=== PATIENT | male | born 1945 | race Caucasian/White ===

== ENCOUNTER 2024-03-10 13:00 | Outpatient (RCR) | payer MEDICARE, SELFPAY | END 2024-04-14 10:49 | disposition home or self-care (01) | PROVIDERS: PCP Family Medicine; Visit Provider Family Medicine | DX: M54.2 Cervicalgia (principal); Z51.89 Encounter for other specified aftercare | CPT/HCPCS: 97110; 97140; 97161 ==

== ENCOUNTER 2024-10-27 04:48 | Emergency (ER) | payer MEDICARE, SELFPAY ==
[2024-10-27] VITALS (17 sets, daily range): BP systolic 142–174; BP diastolic 81–101; PULSE 70–89; RESP 16; TEMP 36.1; O2SAT 95–98; BMI 21.5
--- OUTSIDE RECORDS SUMMARY | 2024-10-27 04:51 | XMS_ITS | Data Portability ---
Author Organization [facility], [facility] Address [address] [place] [address] [address] [place] [address] Care Team Providers Care Course Developer Name Role Phone [facility] Primary Care Provider Assessment No assessment recorded. Plan of Treatment Reminders Order Date Submit Date Provider Last Modified By Organization Details Last Modified Time Details Appointments None recorded. Lab None recorded. Referral None recorded. Procedures None recorded. Surgeries None recorded. Imaging None recorded. Medication Orders finasteride 5 mg tablet 2023 [id number], [id number], [place], [address], 17:57:17 tadalafil 5 mg tablet 2023 [id number], [id number], [place], [address], 17:57:15 sildenafil 100 mg tablet 2023 [id number], [id number], [place], [address], 17:57:16 Patient TargetsNo targets recorded. Patient InstructionsNo instructions recorded. Reason for Referral None Reported. Procedures Surgical History Date Name Laterality Status Provider Name and Address Organization Details Recorded Time Bladder Scan completed Dalila Calvo [facility] 04/29/2024 15:15:35 colonoscopy completed Dalila Calvo [facility] 04/29/2024 15:14:32 Imaging Results None recorded. Procedure Notes None recorded. Medical Equipment None Reported. Allergies Allergen ID Allergen Name Allergen Category Reaction Reaction Severity Criticality Documentation Date Start Date Code Code System Note Provider Name and Address Organization Details Recorded Time [id number] Vaccine product containin g only Clostridi um tetani antigen (medicina l product) medicatio n Not available Not available Not available 04/29/2024 56329 [id number] SNOMED Not Available Not Available Not Available Medications Name Sig Start Date Stop Date Status Note LastModified by Organization Details LastModified Time albuterol sulfate 2.5 mg/3 mL (0.083 %) solution for nebulizatio n INHALE 3 ML (2.5 MG) VIA A NEBULIZER EVERY 6 HOURS IF NEEDED FOR WHEEZING OR SHORTNESS OF BREATH. active Not Available Not Available No t Available lisinopril 20 mg-hydrochl orothiazide 12.5 mg tablet Take 1 tablet every day by oral route. active Not Available Not Available No t Available sildenafil 100 mg tablet Take 1 tablet every day by oral route. 2023 active Not Available Not Available Not Avai lable brimonidine 0.2 % eye drops INSTILL 1 DROP INTO AFFECTED EYE(S) BY OPHTHALMI C ROUTE EVERY 8 HOURS active Not Available Not Available No t Available montelukast 10 mg tablet Take 1 tablet every day by oral route. active Not Available Not Available No t Available finasteride 5 mg tablet Take 1 tablet every day by oral route. 2023 active Not Available Not Available Not Avai lable tadalafil 5 mg tablet Take 1 tablet every day by oral route. 2023 active Not Available Not Available Not Avai lable GaviLyte-G 236 gram-22.74 gram-6.74 gram-5.86 gram oral solution DRINK 2 LITERS THE DAY BEFORE COLONOSCO PY AND 2 LITERS 6 HOURS BEFORE COLONOSCO PY APPOINTME NT 04/29 completed Not Available Not Available Not Available dorzolamide 2 % (PF) eye drops active Not Available Not Available No t Available Paxlovid 300 mg (150 mg x 2)-100 mg tablets in a dose pack PLEASE SEE ATTACHED FOR DETAILED DIRECTION S 04/29 completed Not Available Not Available Not Available latanoprost (PF) 0.005 % eye drops in a dropperette INSTILL 1 DROP INTO AFFECTED EYE(S) BY OPHTHALMI C ROUTE ONCE DAILY INTHE EVENING active Not Available Not Available No t Available Vitals Date Recorded Body height Provider Name an d Address Organization Details Last Updated DateTime 04/29/2024 185.42 cm Dalila Calvo [facility] 04/29/2024 15:05:07 Date Recorded Body mass index (BMI) Body weight Provider Name and Address Organization Details Last Updated DateTime 04/29/2024 21.8 kg/m2 45603.74 g [facility] 04/29/2024 15:05:24 Social History Question Answer Notes LastModified by Organizat ion Details LastModified Time Tobacco Smoking Status Never Smoker [facility] [place] [facility] 04/29/2024 15:14:13 What Is Your Level Of Alcohol Consumption? Occasional Information not available 04/29/2024 What Is Your Level Of Caffeine Consumption? Occasional Information not available 04/29/2024 What Was The Date Of Your Most Recent Tobacco Screening? 04/29/2024 Information not available 04/29/2024 Sex: Unknown Functional Status None recorded. Mental Status None recorded. Family History Relationship Description Onset Age of this Age Resolved Age Notes LastModified by Organization Details LastModified Time Father No current problems or disability [email or web address] Not available 04/29 15:13:48 Mother No current problems or disability [email or web address] Not available 04/29 15:13:48 Medical History Condition Response Other N High Blood Pressure Y Kidney Stones Y Lung Disease N Depression N GERD/Acid Reflux N Diabetes N Sexually Transmitted Infection N Bleeding Disorder N Cancer N High Cholesterol N Heart Disease N Immunizations Vaccine Type Date Status Note Provider Nam e and Address Organization Details Recorded Time Influenza, high-dose, quadrivalent, PF [facility] 04/29/2024 15:05:31 Influenza, high-dose, quadrivalent, PF 2 completed Dalila Calvo [facility] 04/29/2024 15:05:31 Influenza, high-dose, quadrivalent, PF 0 [facility] [place] [facility] 04/29/2024 15:05:31 Influenza, adjuvanted, quadrivalent, PF 1 completed Dalila Calvo null, [facility] 04/29/2024 15:05:31 COVID-19, mRNA, LNP-S, PF, 30 mcg/0.3 mL dose 1 completed Dalila Calvo null, [facility] 04/29/2024 15:05:31 COVID-19, mRNA, LNP-S, PF, 30 mcg/0.3 mL dose 1 completed Dalila Calvo null, [facility] 04/29/2024 15:05:31 COVID-19, mRNA, LNP-S, PF, 30 mcg/0.3 mL dose 1 completed Dalila Calvo null, [facility] 04/29/2024 15:05:31 Pneumococcal conjugate PCV20, polysaccharide [id number] conjugate, adjuvant, PF 3 completed Dalila Calvo null, [facility] 04/29/2024 15:05:31 COVID-19, mRNA, LNP-S, bivalent, PF, 30 mcg/0.3 mL dose 2 completed Dalila Calvo null, [facility] 04/29/2024 15:05:31 COVID-19, mRNA, LNP-S, PF, felix-sucrose, 30 mcg/0.3 mL 4 completed Dalila Calvo null, [facility] 04/29/2024 15:05:31 pneumococcal polysaccharide PPV23 3 completed Dalila Calvo null, [facility] 04/29/2024 15:05:31 Novel [id number]-[id number], all formulations 0 completed Dalila Calvo null, [facility] 04/29/2024 15:05:31 Pneumococcal conjugate PCV 13 6 completed Dalila Calvo null, [facility] 04/29/2024 15:05:31 Influenza, high-dose, trivalent, PF 8 completed Dalila Calvo null, [facility] 04/29/2024 15:05:31 Influenza, high-dose, trivalent, PF 5 completed Shalisa [place] null, [facility] 04/29/2024 15:05:31 Influenza, high-dose, trivalent, PF 9 completed Shalisa [place] null, [facility] 04/29/2024 15:05:31 Influenza, high-dose, trivalent, PF 4 completed Shalisa [place] null, [facility] 04/29/2024 15:05:31 Influenza, split virus, trivalent, preservative 7 completed Shalisa [place] null, [facility] 04/29/2024 15:05:31 Influenza, split virus, trivalent, preservative 8 completed Shalisa [place] null, [facility] 04/29/2024 15:05:31 Influenza, split virus, trivalent, PF 0 completed Naresh null, [facility] 04/29/2024 15:05:31 Td (adult), 2 Lf tetanus toxoid, preservative free, adsorbed 0 completed Johnli [place] null, [facility] 04/29/2024 15:05:31 Hep B, adult 5 completed li null, [facility] 04/29/2024 15:05:31 Hep B, adult 5 completed Naresh null, [facility] 04/29/2024 15:05:31 Hep A, adult 5 completed Johnlisa [place] null, [facility] 04/29/2024 15:05:31 Influenza, split virus, quadrivalent, PF 4 completed Shalisa [place] null, [facility] 04/29/2024 15:05:31 Influenza, split virus, quadrivalent, PF 6 completed Shalisa [place] null, [facility] 04/29/2024 15:05:31 Past Encounters Encounter ID Performer Location Encounter Start Date Encounter Closed Date Diagnosis/Indication Diagnosis SNOMED-CT Code Diagnosis ICD10 Code Diagnosis Note [id number] MD ANNETTE Ruggiero_Nadira Campbell [facility]OWNING [id number] 0 04/29/2024 14:52:13 04/30/2024 10:32:25 Slowing of urinary stream 76666174 R39.12 - Obtain UroCuff - PVR 1 mL - AUA SS: 30 (QOL 4) - PSA: 2.73 ng/mL - We discussed the natural history of voiding dysfunctio n including primary bladder outlet obstructio n vs detrusor instabilit y vs combinatio n. We discussed the role of medication s in the management of BPH including alpha blockers, 5-ANI, and anticholin ergics/bet a agonists including their mechanisms of action. - We discussed various bladder outlet procedures including MISTs (UroLift, Rezum, Prostate Artery Embolizati on) and traditiona l invasive procedures (Aquablati on, Greenlight PVP, Bipolar TURP, HoLEP). We reviewed risks and benefits of each including anticipate d long-term outcomes. To further evaluate each of these options as a potential treatment option I will set him up for a cystoscopy and TRUS volume only to determine volume and status of medial lobe; as well as a pressure flow study to confirm obstructio n in accordance with AUA guidelines . -Start combinatio n therapy tadalafil + finasterid e Terminal d ribbling of urine 981087560 N39.43 - As above Finding of desire for urination 102341343 O26.899 - As above Increased frequency of urination 458388639 R35.0 - As above Must strai n to pass urine 927743185 R39.16 - As above Primary er ectile dysfunction 792049384 N52.9 - We discussed the natural history of erectile dysfunctio n. - Encouraged to continue to follow with his PCP regarding general health maintenanc e as early onset erectile dysfunctio n may herald future cardiovasc ular event. - We discussed various treatment options and their mechanisms of action including: oral PDE-5i, vacuum erection device, intracaver nosal injection therapy, MUSE, and penile prosthesis . The risks and benefits of each course of action were discussed in detail. AUA guidelines suggest that all treatment options should be considered equal and choice of therapy should be individual ized. Health Concerns Section Related Observation LastModified by Organization Christiano LastModified Time None Recorded Concern Status LastModified by Organization Details LastModified Time None Recorded Advance Directives Directive None Recorded Payers Encounter Date Sequence Insurance Name Policy Number Policy Tillman Covered Member ID Tillman Member ID Guarantor Name 04/29/2024 1 [employer] - DOS ON OR AFTER 19 (MEDICARE REPLACEMENT/ ADVANTAGE - PPO) Gabriele Mccall [id number] Gabriele Mccall Notes Date Note Type Note Provider Name and Address Organization Details Recorded Time 04/29/2024 text/html Mr. Mccall is a 78 yoM who previously saw me in [place] for ED and nocturia. Patient reports that both his ED and voiding have worsening. Current voiding consists of: weak urinary stream, straining to void, urinary frequency, urinary urgency,and sensation of incomplete emptying. Laz Zapata MD [address] [facility],[address], [place], [address], [facility] 04/29/2024 18:01:59
--- OUTSIDE RECORDS SUMMARY | 2024-10-27 04:51 | XMS_ITS | Continuity of Care Document ---
Author Organization [facility] Address [address] [address] [place] [address] Phone Care Team Providers Care Airplane Pilot Crop Dusting Name Role Phone Cam Madrid MD Unavailable Unavailabl e Allergies, Adverse Reactions, Alerts Substance Reaction Status Criticality TETANUS AND DIPHTHERIA TOXOIDS, ADSORBED, ADULT HivesH tc Active No Information Medications Medication Instructions Dosage Effective Dates (start - stop) Status Comments montelukast 10 mg tablet take 1 tablet by oral route every day in the evening 10 MG - Active dorzolamide 2 % eye drops instill 1 drop by ophthalmic route 2 times every day into affected eye(s) 1 drop - Active brimonidine 0.15 % eye drops instill 1 drop by ophthalmic route 2 times every day into affected eye(s) 1 drop - Active latanoprost 0.005 % eye drops instill 1 drop by ophthalmic route every day into affected eye(s) in the evening 1.00 drop - Active Procedures Procedure Date Adenoma(s), Other Neoplasm Detected Duri ng Screen Colonoscopy Flex; W/bx 1/mx Level Iv-surg Path Gross/micro 18 Advance Directives Directive Yes / No Effective Date File Name No Information Encounters Encounter Description Practice Location Reason(s) For Visit Diagnoses Date Provider Providers Copied on Encounter [facility], [address] [address], [place], [id number], [place] tel:[phone] [facility] No Information Kofi Levy. [address] [facility], [facility] [address], [place], [place], [id number] , . tel:[phone] [facility], [address] [address], [place], [place], [id number], tel:[phone] [facility] Colorectal polyp detected on colonoscopyDivertic ulosis of colon without diverticulitisInter nal and external hemorrhoids without complicationEncount er for screening for malignant neoplasm of colonPersonal history of colonic polypsBenign neoplasm of ascending colonDvrtclos of lg int w/o perforation or abscess w/o bleedingBenign neoplasm of ascending colonPersonal history of colonic polyps 8 Jules Chao. [address] [facility], [facility] [address], [place], [place], [id number] , [place]. tel:[phone] Referring Provider: Kevin Denson MD S, [address], [place], [address]. tel:[phone] Family History Family Member Type Diagnosis Age At Onset Daughter Problem (finding) Alive and well Son Problem (finding) Alive and well Father Problem (finding) Brother Problem (finding) Alive and well Sister Problem (finding) Alive and well Mother Problem (finding) Payers Payer name Insurance type Covered democrat ID Authoriza tion(s) No Information Social History Type Description Quantity Date Captured Comments Sex Male Smoking Status No Information Chief Complaint And Reason For Visit No Information Reason For Referral Reason For Referral No Information History Of Present Illness Encounter Date Complaint History Of Prese nt Illness No Information Functional Status Date Functional Assessmen t No Information Instructions Date Instruction Additional Infor mation Colon Cancer Prevention Related to Colorectal polyp detected on colonoscopy Colon Polyps Related to Color ectal polyp detected on colonoscopy Diverticulosis/Diverticulitis Re lated to Diverticulosis of colon without diverticulitis High Fiber Diet Related to Diver ticulosis of colon without diverticulitis Assessments Type Assessment Date No Information Patient Care Teams Name Effective Dates (start - stop) Status Members No Information
--- OUTSIDE RECORDS SUMMARY | 2024-10-27 04:51 | XMS_ITS | Clinical Summary ---
Author Organization [email or web address] [facility] Address [place], [place] [address] Care Team Providers Care Cashier Supervisor Name Role Phone Scottie Meadows MD Primary Care Provider Allergies Active Allergy Reactions Criticality Noted Date Comments Tetanus Vaccines And Toxoid Rash 12/26/19 17 Medications aspirin (ADULT LOW DOSE ASPIRIN) 81 mg enteric coated tabletIndications :HLD (hyperlipidemia) Take by mouth. 7 Active brinzolamide-brim onidine 1-0.2 % drpsIndications:G laucoma Place into the eye(s). Active dorzolamide (TRUSOPT) 2 % ophthalmic solution Place 1 Drop into both eyes 2 times daily. 8 Active latanoprost (XALATAN) 0.005 % ophthalmic solution Place 1 Drop into both eyes once daily. 8 Active sildenafil citrate (VIAGRA) 100 mg tabletIndications :Erectile dysfunction, unspecified erectile dysfunction type Take 1 Tablet (100 mg) by mouth once daily if needed for Erectile Dysfunction. Take 30min to 4 hours before sexual activity. Max 100mg/24hr. 30 Tablet 11 1 Active albuterol HFA (Ventolin HFA) 90 mcg/actuation inhalerIndication s:Mild intermittent asthma without complication Inhale 1-2 Puffs by mouth every 4 hours if needed for Shortness of Breath 1st choice. 1 Each 1 4 Active montelukast (SINGULAIR) 10 mg tabletIndications :Chronic rhinitis,Mild persistent asthma without complication Take 1 Tablet (10 mg) by mouth at bedtime. 90 Tablet 3 4 Active albuterol 0.083% (2.5 mg/3 mL) neb solutionIndicatio ns:Mild persistent asthma without complication Inhale 3 mL (2.5 mg) via a nebulizer every 6 hours if needed for Wheezing or Shortness Of Breath. 75 mL 3 4 Active predniSONE (DELTASONE) 20 mg tabletIndications :Moderate asthma with exacerbation, unspecified whether persistent Two tabs oral daily for 5 days. 10 Tablet 4 Active fluticasone propion-salmetero L (ADVAIR) 250-50 mcg/Dose diskus inhalerIndication s:Mild persistent asthma without complication Inhale 1 Puff by mouth two times daily. 10.2 Each 4 4 Active lisinopriL (PRINIVIL; ZESTRIL) 10 mg tabletIndications :Need for COVID-19 vaccine Take 1 Tablet (10 mg) by mouth once daily. 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 Office Visit [facility] [address] [place] [address] Scottie Meadows MD Follow Up (Cough and wheezing ) 08/09/2024 Travel from Last 3 Months Immunizations Name Administration Dates Next Due AMB Influenza, IIV4 PF (=>6 mos Flulaval,Fluzone Fluarix)(Flu Clinic Only) 10/02/2016 COVID-19 VACCINE SPIKEVAX (M ODERNA 50MCG/0.5ML) 12YO+ PFS 06/24/2024 Hepatitis A (Adult) 06/30/2015 Hepatitis B (Adult) 08/01/2015,06/30/2015 Influenza A (H1N1), Inactivated 11/21/2009 Influenza, High-dose Inactivated 019,07/27/2018,08/01/2015,2013 Influenza, High-dose Quadriv alent Inactivated 10/09/2023,08/05/2022,08/30/2020 Influenza, IIV3 (Age 6-35 mos) 11/21/2009 Influenza, IIV3 (Age >=3 years) 09/19/2008,08/11 Influenza, IIV4 10/14/2013 Influenza, Inactivated AIIV4 (Age 65+ Years) Preserv Free 08/24/2021 Influenza, Inactivated IIV3 (Age 65+ Years) Preserv Free 08/09/2024 Pneumococcal Conj 20-valent (Prevnar 20) 11/07/2022 Pneumococcal Poly,23-Valent (Pneumovax) 03/04/2013 Pneumococcal conj 13-Valent (Prevnar 13) 12/13/2015 Td (Age >=7 Years) 05/01/1990 Tdap 05/01/1990 Family History Medical History Relation Name Comments Hypertension Brother 2 Hypertension Father Other Father CAD Parkinsonism Father Arthritis Mother Hypertension Mother Hypertension Sister 2 Anesthesia Problem No Family History Relation Name Status Comments Brother 1 Alive Brother 2 Father Mother Alive Sister 1 Alive Sister 2 Social History Tobacco Use Types Packs/Day Years Used Date Smoking Tobacco: Never Smokeless Tobacco: Never Tobacco Cessation:Counseling Given: No Alcohol Use Standard Drinks/Week Comments Yes 0 (1 standard drink = 0.6 oz pur e alcohol) rare PHQ-2 Answer Date Recorded PHQ-2 TOTAL SCORE 0 11/18/2023 Social Connections Answer Date Recorded Do you often feel lonely or isolated from those around you? 0 11/17/2023 Financial Resource Strain Answer Date R ecorded Difficulty of Paying Living Expenses 3 11/17/2023 Difficulty of Paying Living Expenses Not on file 11/17/2023 Food Insecurity Answer Date Recorded Do you worry your food will run out before you are able to buy more? 1 11/17/2023 Transportation Needs Answer Date Record ed Does lack of transportation keep you from medica l appointments? 1 11/17/2023 Does lack of transportation keep you from work, meetings or getting things that you need? 1 11/17/2023 Housing Stability Answer Date Recorded What is your housing situation today? 1 11/17/2023 Utilities Answer Date Recorded Do you have trouble paying f or utilities (for example, heat, electricity, water, phone)? 1 11/17/2023 Sex and Gender Information Value Date Recorded Sex Assigned at Not on file Legal Sex Male 3:31 PM CDT Gender Identity Not on file Sexual Orientation Not on file Obstetrics History Last Filed Vital Signs Vital Sign Reading Time Taken Comments Blood Pressure 108/69 08/09/2024 1:58 PM R[employer] MACHINE TENDER Pulse 88 08/09/2024 1:58 PM [employer] M[employer] TENDER Temperature 36.4 C (97.5 F) 07/21/2024 11:21 AM CDT Respiratory Rate 14 12/30/2023 12:0 0 PM CDT Oxygen Saturation 96% 08/09/2024 1:58 PM RIB[employer] LAP MACHINE TENDER Inhaled Oxygen Concentration - - Weight 76.1 kg (167 lb 12.8 oz) 08/09/2024 1:58 PM [employer] LAP MACH[employer] TENDER Height 185.4 cm (6' 1) 07/26/2024 3:20 PM CDT Body Mass Index 22.14 07/26/2024 3:20 PM CDT Plan of Treatment Health Maintenance Due Date Last Done Comments Zoster (shingles) series for age 50+ (1 of 2) 1997 RSV vaccine for adults or (1 - 1-dose 75+ series) 2022 Depression screening for age 12+ 11/18/2024 11/18/2023, 11/18/2023, 11/07/2022, Additional history exists Medicare Wellness for age 65+ 11/18/2024, 11/07/2022, 08/24/2021, Additional history exists BMI (ht and wt on same day) for age 18+ 07/26/2025 07/26/2024, 06/24/2024, 11/18/2023, Additional history exists Hepatitis C screening for ag e 18-79 Completed 12/13/2015 Pneumococcal series for age 50+ Completed 11/07/2022, 12/13/2015, 03/04/2013 COVID-19 vaccine series Completed 06/24/20 24, 10/09/2023, 07/12/2022, Additional history exists Influenza for age 65+ Completed 08/09/2024 , 10/09/2023, 08/05/2022, Additional history exists Procedures Procedure Name Priority Date/Time Associated Diagnosis Comments ANTI HCV Routine 12/13/2015 10:16 AM R[employer] LAP MACH[employer] TENDER Medicare annual wellness visit, subsequent from Last 3 Months or Most Recently Relevant to Health Maintenance Results * ANTI HCV [[id number]] (12/13/2015 10:16 AM RIB[employer]ON LAP MACHINE TENDER) HEPATITIS C ANTIBODY Non-Reacti ve Non-Reacti ve 12/13/2015 4:11 PM RIBBON LAP MACHINE TENDER [facility] Blood specimen (specimen) BLOOD SPECIMEN / Unknown Venipuncture / Unknown 12/13/2015 10:16 AM [employer] LAP MACH[employer] TENDER 12/13/2015 10:16 AM [employer] LAP MACHINE TENDER Narrative [facility] - 12/13/2015 4:11 PM [employer] MACH[employer] TENDER Antibodies to HCV not detected; does not exclude the possibility of exposure to HCV. us Kevin Denson MD SEND OUTS Final Res ult [facility] [address] [place] [address], [place] from Last 3 Months or Most Recently Relevant to Health Maintenance Insurance [employer] MED[employer]ARE [employer]VANTAGE [facility] Care Teams Cashier Supervisor Relationship Specialty Start Date End Date Scottie Meadows MD [address] [place] [address] PCP - General Family Practice 09/15/19
--- NOTE | 2024-10-27 05:42 | CRLHL7_ITS ---
For Patients: As a result of the Century Cures Act, medical imaging exams and procedure reports are released immediately into your electronic medical record. You may view this report before your referring provider. If you have questions, please contact your health care provider. INDICATION: Vertigo, dizziness, hypertension. COMPARISON: None. TECHNIQUE: CT of the brain / head without intravenous contrast. Multiplanar axial, coronal, and sagittal reformats were reconstructed. FINDINGS: No intracranial hemorrhage. Normal appearance of the white matter. No acute or subacute cortically based infarct. No mass or mass effect. Normal ventricles. No skull fractures. No worrisome focal bone lesion. Mild paranasal sinus mucosal thickening. No air-fluid levels. IMPRESSION: 1. Normal intracranial contents. 2. Mild paranasal sinus mucosal thickening. Please note that all CT scans at this facility use dose modulation, iterative reconstruction, and/or weight-based dosing when appropriate to reduce radiation dose to as low as reasonably achievable. Dictated by Libby Antonio MD @ 10/27/2024 6:31:25 AM (Electronically Signed)
--- OUTSIDE RECORDS SUMMARY | 2024-10-27 05:56 | XMS_ITS | Continuity of Care Document ---
Author Organization [facility] Address [address] [address] [place] [address] Phone Care Team Providers Care Hr Business Partner Name Role Phone Cam Madrid MD Unavailable [...] Diagnoses Date Provider Providers Copied on Encounter [facility], [address] [address], [place], [id number], [place] tel:[phone] [facility] No Information Kofi Levy. [address] [facility], [facility] [address], [place], [place], [id number] , . tel:[phone] [facility], [address] [address], [place], [place], [id number], tel:[phone] [facility] Colorectal polyp detected on colonoscopyDivertic ulosis of colon without diverticulitisInter nal and external hemorrhoids without complicationEncount er for screening for malignant neoplasm of colonPersonal history of colonic polypsBenign neoplasm of ascending colonDvrtclos of lg int w/o perforation or abscess w/o bleedingBenign neoplasm of ascending colonPersonal history of colonic polyps 8 Jules Chao. [address] [facility], [facility] [address], [place], [place], [id number] , [place]. tel:[phone] Referring Provider: Kevin Denson MD S, [address], [place], [address]. tel:[phone] Family History Family Member Type Diagnosis Age At Onset Daughter Problem (finding) Alive and well Son Problem (finding) Alive and well Father Problem (finding) Brother Problem (finding) Alive and well Sister Problem (finding) Alive and well Mother Problem (finding) Payers Payer name Insurance type Covered alliance party ID Authoriza tion(s) No Information Social History [...]
--- OUTSIDE RECORDS SUMMARY | 2024-10-27 05:56 | XMS_ITS | Clinical Summary ---
Author Organization [facility] [facility] Address [place], [place] [address] Care Team Providers Care Behavioral Sciences Department Chair Name Role Phone Scottie Meadows MD Primary [...] Department Care Team Description 08/09/2024 2:05 PM CELLAR PACKER Office Visit [facility] [address] [place] [address] Scottie Meadows MD Follow Up (Cough and [...] Comments Blood Pressure 108/69 08/09/2024 1:58 PM CELLAR PACKER Pulse 88 08/09/2024 1:58 PM CELLAR PACKER Temperature 36.4 C (97.5 F) 07/21/2024 11:21 AM CDT Respiratory Rate 14 12/30/2023 12:0 0 PM CDT Oxygen Saturation 96% 08/09/2024 1:58 PM CELLAR PACKER Inhaled Oxygen Concentration - - Weight 76.1 kg (167 lb 12.8 oz) 08/09/2024 1:58 PM CELLAR PACKER Height 185.4 cm (6' 1) 07/26/2024 3:20 [...] Comments ANTI HCV Routine 12/13/2015 10:16 AM CELLAR PACKER Medicare annual wellness visit, subsequent from Last 3 Months or Most Recently Relevant to Health Maintenance Results * ANTI HCV [[id number]] (12/13/2015 10:16 AM CELLAR PACKER) HEPATITIS C ANTIBODY Non-Reacti ve Non-Reacti ve 12/13/2015 4:11 PM CELLAR PACKER [facility] Blood specimen (specimen) BLOOD SPECIMEN / Unknown Venipuncture / Unknown 12/13/2015 10:16 AM CELLAR PACKER 12/13/2015 10:16 AM CELLAR PACKER Narrative [facility] - 12/13/2015 4:11 PM CELLAR PACKER Antibodies to HCV not detected; does not exclude the possibility of exposure to HCV. us Kevin Denson MD SEND OUTS Final Res ult [facility] [address] [place] [address], [place] from Last 3 Months or Most Recently Relevant to Health Maintenance Insurance [employer] MED[employer]ARE ADV[employer]AGE [employer] [facility] Care Teams Behavioral Sciences Department Chair Relationship Specialty Start Date End Date Scottie Meadows MD [address] [place] [address] PCP - General Family Practice 09/15/19
[2024-10-27 06:07] LABS: Basophils Absolute Auto 0.04 K/uL (0.00-0.30); Basophils Percent Auto 0.8 % (0.0-3.0); Eosinophils Absolute Auto 0.32 K/uL (0.00-0.50); Eosinophils Percent Auto 6.3 % (0.0-7.0); Hematocrit 41.1 % (37.0-53.0); Hemoglobin* 13.4 gm/dL (13.5-17.5); Immature Granulocytes Abs Auto 0.06 K/uL (0.00-0.30); Immature Granulocytes Pct Auto 1.2 %; Lymphocytes Percent Auto 17.5 % (20-44); Mean Corpuscular HGB Conc 33 gm/dL (32-36); Mean Corpuscular Hemoglobin 28 pg (26-34); Mean Corpuscular Volume 87 fL (80-100); Monocytes Percent Auto 7.3 % (0.0-11.0); Neutrophils Absolute Auto 3.42 K/uL (1.7-7.0); Neutrophils Percent Auto 66.9 % (42.0-72.0); Platelet Count* 258 K/uL (140-440); RDW Coefficient of Variation % 12.8 % (11.5-15.5); Red Blood Count 4.75 m/uL (4.30-5.90)
--- NOTE | 2024-10-27 06:09 | ED.GENADULT ---
HPI - General Adult General Chief complaint: Hypertension Stated complaint: Dizziness, BP 168/89 Time Seen by Provider: 10/27/24 05:29 Source: patient and family Mode of arrival: ambulatory Limitations: no limitations History of Present Illness HPI narrative: 79-year-old male presents to the emergency department for evaluation of dizziness which she describes as a room spinning sensation that lasts for about 1-2 minutes after he gets up to go to the bathroom overnight. Happens only when lying down, not with movement of his head. No symptoms currently. No trauma or injury. Not anticoagulated. Does have a history of hypertension. He has noticed that his blood pressure has been running higher than usual specifically in the 150 systolic over the last month or so. He does regularly monitor is blood pressure 2 to 3 times per week. Has not followed up with his primary care doctor regarding this. No feeling of abnormal heart rate or rhythm, no chest pain, no severe shortness of breath. He denies fevers or recent symptoms of illness. No dysuria, bloody stools, symptoms of bleeding, other stroke-like symptoms. No vision changes, no balance issues. He cannot reproduce symptoms here for me. Denies prior episodes of similar illness. He does take lisinopril for his hypertension and admits that sometimes he has a slight postural lightheadedness with position changes but that is not new nor what he is describing today. Past medical history is notable for hypertension and glaucoma only. No prior surgeries besides glaucoma surgery. His only home medications are his eyedrops and lisinopril 10 mg once daily with no recent dose adjustments. He also takes a at 81 mg aspirin daily. Nonsmoker. No pertinent travel. ROS is notable for the generalized symptoms as above only, otherwise denies times 12 systems. Related Data Allergies Allergy/AdvReac Type Severity Reaction Status Date / Time tetanus immune globulin Allergy Intermediate Rash Verified 10/27/24 04:55 [facility] Social History Non-prescribed substance use: denies use Exam Const: Vital Signs, click to edit/add: Vital Signs - 24 hr 10/27/24 04:49 10/27/24 05:10 10/27/24 05:30 Temperature 97.0 F L Pulse Rate 84 73 Pulse Rate [Left P ulse Oximeter] 85 Respiratory Rate 16 Blood Pressure Blood Pressure [Ri ght Upper Arm] 174/81 H Pulse Oximetry 98 97 96 Oxygen Delivery Me thod Room Air 10/27/24 05:32 Temperature Pulse Rate 89 Pulse Rate [Left P ulse Oximeter] Respiratory Rate Blood Pressure 159/101 H Blood Pressure [Ri ght Upper Arm] Pulse Oximetry 98 Oxygen Delivery Me thod Documenting provider has reviewed patient's vital signs: yes Common normals: no apparent distress and alert General appearance: comfortable and well kempt Other: Mildly anxious, talkative. Friendly and cooperative HENMT: Common normals: normocephalic, moist oral mucous membranes and oropharynx normal Head and scalp: normocephalic Face and sinus: normal facial exam Mouth: oral and palatal mucosa normal Eye: Common normals: PERRL, EOMs intact bilaterally and conjunctivae normal General eye: normal appearance of both eyes Conjunctiva: conjunctiva(e) normal Pupil: PERRL Other: No nystagmus on exam Neck & C-Spine: Common normals: full ROM and no lymphadenopathy General: normal visual inspection Resp: Common normals: normal respiratory effort, no use of accessory muscles and clear to auscultation bilaterally Effort & inspection: able to speak in complete sentences Auscultation: clear to auscultation bilaterally Cardio: Common normals: regular rate, regular rhythm, S1 normal heart sound, S2 normal heart sound and no murmurs Rate: regular rate Rhythm: regular rhythm Heart sounds: S1 normal and S2 normal GI: Common normals: Normal to inspection, nondistended, normoactive bowel sounds present, soft to palpation, non-tender, no hepatosplenomegaly and no masses Palpation: soft and no hepatosplenomegaly Back & Pelvis: Common normals: thoracic and lumbar spine normal to inspection Extremity: Common normals: normal to inspection, full ROM and normal capillary refill Neuro: Common normals: CN's II-XII intact bilaterally, moves all extremities and no focal motor deficits Sensorium/orientation: alert Speech: speech normal Gait (neuro): normal gait Motor exam: strength 5/5 throughout, no tremor noted and no movement abnormalities noted Psych: Appearance: well kempt Attitude: engaged Activity/motor behavior: appropriate eye contact Attention/concentration: attention grossly intact Insight: fair Judgement: fair Skin: Common normals: no rashes or lesions noted General skin exam: no rashes or lesions noted Course Course ED Course: 79-year-old male with brief episodes of vertiginous dizziness with lying down at night that spontaneously resolve within a couple of minutes. Differential diagnosis including symptomatic hypertension, TIA, benign positional vertigo, labyrinthitis, side effects from his lisinopril, acute illness like bladder infection, influenza, symptomatic anemia, amongst others. I do ask for clarification several times in the interview if this is a lightheadedness verses a vertigo type pattern and he does contradict himself a few times. Because of this, I think it is worth doing a full workup. Head CT, troponins, CBC, metabolic panel, court monitor recommended. Blood pressures are mildly elevated but not levels that have me concerned for acute treatment. EKG ordered. Await findings. Reevaluation(s) Time of Reevaluation #1: 08:13 Reevaluation #1: Patient informed of his lab results, repeat troponins are also negative. Patient has been up ambulating to the bathroom twice while he has been here and is clearly very steady on his feet. He remains asymptomatic with no neuro changes. Counseled that the CT does show some sinus thickening. This could potentially explain his mild vertigo or it could be related to other factors. Nonetheless it does not seem to be urgent at this time. Blood pressures have remained stable and do not require treatment at this time. I would like for patient to start some Flonase twice daily for a few days and then once daily for a total of 2 weeks. Primary care follow-up in 2 weeks time to recheck blood pressures and re-evaluate symptoms. Consider MRI if symptoms are not improving. He will stay on his lisinopril and low-dose aspirin as prescribed. Following up in the ED with any alarm symptoms. Written instructions provided. Vital Signs Vital signs: Initial Vital Signs Temperature 97.0 F L 10/27/24 04:49 Temperature Source Temporal Artery Scan 10/27/24 04:49 Pulse Rate 85 10/27/24 04:49 Pulse Rhythm Regular 10/27/24 04:49 Respiratory Rate 16 10/27/24 04:49 Blood Pressure 174/81 H 10/27/24 04:49 Blood Pressure Mean 112 H 10/27/24 04:49 Blood Pressure Position Sitting 10/27/24 04:49 Pulse Oximetry 98 10/27/24 04:49 Oxygen Delivery Method Room Air 10/27/24 04:49 Vital Signs Temperature 97.0 F L 10/27/24 04:49 Pulse Rate 85 10/27/24 04:49 Respiratory Rate 16 10/27/24 04:49 Blood Pressure 174/81 H 10/27/24 04:49 Pulse Oximetry 98 10/27/24 04:49 Oxygen Delivery Method Room Air 10/27/24 04:49 Temperature 97.0 F L 10/27/24 04:49 Pulse Rate 89 10/27/24 05:32 Respiratory Rate 16 10/27/24 04:49 Blood Pressure 159/101 H 10/27/24 05:32 Pulse Oximetry 98 10/27/24 05:32 Oxygen Delivery Method Room Air 10/27/24 04:49 Medical Decision Making Lab Data Lab results reviewed: Yes I reviewed the patient's lab results Lab results narrative: Labs reassuring. Repeat troponin 0 Labs: Lab Results 10/27/24 10/27/24 10/27/24 Range/Units 05:42 05:50 06:05 WBC 5.10 (4.50-11.00) K/uL RBC 4.75 (4.30-5.90) m/uL Hgb 13.4 L (13.5-17.5) gm/dL Hct 41.1 (37.0-53.0) % MCV 87 (80-100) fL MCH 28 (26-34) pg MCHC 33 (32-36) gm/dL RDW Coeff of Diana 12.8 (11.5-15.5) % Plt Count 258 (140-440) K/uL Neut % (Auto) 66.9 (42.0-72.0) % Lymph % (Auto) 17.5 L (20-44) % [place] % (Auto) 7.3 (0.0-11.0) % Eos % (Auto) 6.3 (0.0-7.0) % Baso % (Auto) 0.8 (0.0-3.0) % Neut # (Auto) 3.42 (1.7-7.0) K/uL Lymph # (Auto) 0.90 (0.90-2.90) K/uL [place] # (Auto) 0.40 (0.00-0.90) K/UL Eos # (Auto) 0.32 (0.00-0.50) K/uL Baso # (Auto) 0.04 (0.00-0.30) K/uL Abs Immat Gran (auto) 0.06 (0.00-0.30) K/uL Imm/Tot Granulo (auto) 1.2 % Sodium 139 (135-149) mmol/L Potassium 4.7 (3.6-5.1) mmol/L Chloride 104 (96-114) mmol/L Carbon Dioxide 29 (20-32) mmol/L Anion Gap 6 L (7-15) mEq/L BUN 17 (7-30) mg/dL Creatinine 0.9 (0.5-1.5) mg/dL Estimated Creat Clear 64.69 Estimated GFR 88 ml/min Glucose 105 (60-115) mg/dL Calcium 9.1 (8.4-10.6) mg/dL C-Reactive Protein < 0.5 L (0.5-1.0) mg/dL Urine Color Yellow (Yellow) Urine Appearance Clear (Clear) Urine pH 7.5 (5.0-8.5) Ur Specific [place] 1.020 (1.000-1.030) Urine Protein Negative (Negative) Urine Glucose (UA) Negative (Negative) Urine Ketones Negative (Negative) Urine Blood Negative (Negative) Urine Nitrite Negative (Negative) Urine Bilirubin Negative (Negative) Urine Urobilinogen 0.2 (0.2-1.0) Ur Leukocyte Esterase Negative (Negative) POC Troponin I 0.02 (0.01-0.04) ng/ml Imaging Data CT scan - head: Attestation: I have reviewed the pertinent imaging results. My impression: Normal head CT. No signs of strokes, bleeds, or significant degenerative changes Radiologist's impression: IMPRESSION: 1. Normal intracranial contents. 2. Mild paranasal sinus mucosal thickening. Please note that all CT scans at this facility use dose modulation, iterative reconstruction, and/or weight-based dosing when appropriate to reduce radiation dose to as low as reasonably achievable. ECG Data Attestation: I personally reviewed and interpreted this ECG as follows: Prior ECG tracings: not available for review Interpretation: Sinus rhythm with a rate of 79. No significant ST or T-wave abnormalities. Normal intervals and axis. Normal EKG. Discharge Plan Discharge Clinical Impression: Hypertension, Acute viral sinusitis Patient Disposition: Home w/ Parent or Adult Condition: Stable Instructions: Sinusitis (ED) Additional Instructions: As we discussed, your blood pressure is mildly elevated but not emergent levels. I would like for you to continue monitoring this and follow up with her primary care doctor in 2-3 weeks to see if you need adjustments to your medications. There were no signs of stroke on your exam or head CT today. The CT did show some thickening of the lining of the sinuses which is suggestive of a mild sinus infection. This certainly could be contributing to your vertigo feelings as well. There were no signs of heart attack, abnormal heart rhythm, dehydration, electrolyte abnormality, urine infection or other abnormality. Your blood work does not suggest that this is a bacterial infection. I suspect that it was caused by a virus. I would like for you to use a nasal steroid spray like [id number] Flonase twice a day for the next 3 days and then decreasing to once a day for 2 weeks. If you develop nose bleeds, make sure your using some nasal saline and good hydration. Continue taking your lisinopril as prescribed. If you continue to have symptoms at follow-up, I would recommend that your primary care provider order an MRI to look more closely at the brain. Activity Level: No Restrictions Discharge Diet: Regular Follow Up/Referrals: Scottie Meadows MD [Primary Care Provider] - Stand Alone Forms: [employer] Info Instructions
[2024-10-27 06:11] LABS: Chloride* 104 mmol/L (96-114); Potassium* 4.7 mmol/L (3.6-5.1); Sodium* 139 mmol/L (135-149)
[2024-10-27 06:13] LABS: Creatinine* 0.9 mg/dL (0.5-1.5); Est. Creatinine Clearance* 64.69; Estimated Glomerular Filt Rate 88 ml/min; Slide Review Reflex No
[2024-10-27 06:13] LABS: Troponin, Point-of-Care* 0.02 ng/ml (0.01-0.04)
[2024-10-27 06:14] LABS: Anion Gap 6 mEq/L (7-15); Blood Urea Nitrogen* 17 mg/dL (7-30); Carbon Dioxide* 29 mmol/L (20-32); Glucose* 105 mg/dL (60-115)
[2024-10-27 06:15] LABS: Calcium* 9.1 mg/dL (8.4-10.6)
[2024-10-27 06:18] LABS: C Reactive Protein* < 0.5 mg/dL (0.5-1.0)
[2024-10-27 06:21] LABS: Appearance Urine Clear (Clear); Bilirubin Urine Negative (Negative); Blood Urine Negative (Negative); Color Urine Yellow (Yellow); Glucose Urine Negative (Negative); Ketones Urine Negative (Negative); Leukocyte Esterase Urine Negative (Negative); Nitrite Urine Negative (Negative); Protein Urine Negative (Negative); Urobilinogen Urine 0.2 (0.2-1.0); pH Urine 7.5 (5.0-8.5)
[2024-10-27 08:35] LABS: PCR FLU A Negative PCR FLU A (Negative); PCR FLU B Negative PCR FLU B (Negative); PCR RSV Negative PCR RSV (Negative); SARS PCR* Negative SARS-CoV-2 (Negative)
== END 2024-10-27 08:50 | disposition home or self-care (01) ==
PROVIDERS: Emergency Provider Family Medicine; PCP Family Medicine
DX: I10 Essential (primary) hypertension (principal); J32.8 Other chronic sinusitis; B97.89 Other viral agents as the cause of diseases classified elsewhere
CPT/HCPCS: 36415; 70450; 80048; 81003; 84484; 85025; 86140; 87631; 93005; 99284; 99285